=== PATIENT | female | born 1940 | race Two or more races ===

== ENCOUNTER 2025-10-23 16:04 | Inpatient (IN) | payer BC, OTHER ==
[~2025-10-23] VITALS: Ht 152.4 cm; Wt 52.9 kg
[~2025-10-23 16:04] MED LIST: DONE1TAB88 PO; EZET-10 PO; VENL150C58 PO
[2025-10-23 16:29] VITALS: PULSE 74; RESP 16; O2SAT 95
--- NOTE | 2025-10-23 17:02 | ED.PDOC ---
Dean. trauma (HPI) HPI Comments This is an 85 year-old female who presents to the ED via EMS S/P unwitnessed fall today at [facility]. Per EMS, patient was found on the floor, but responsive to staff. Patient presents to the ED with multiple fall wounds, and erythema to the forehead. Patient has no further complaints at this time and otherwise denies dizziness, weakness, fatigue, headache, fever, or chills. Chief Complaint: Fall Injury Time Seen by MD: 16:14 Reviewed notes: Nurses Notes, Medications, Allergies Allergies: Coded Allergies: No Known Drug Allergy (Verified Allergy, Unknown, 10/23/25) Information Source: Patient Mode of Arrival: Ambulatory Severity: Moderate Timing: Minutes Duration: Since onset Prehospital treatment: None Location: Face, Head Mechanism: Fall Past Medical History PAST MEDICAL HISTORY: Unknown Surgical History: Unknown BOTTOM CAGER History: No Pertinent BOTTOM CAGER History Family History Family History: Unknown Social History Smoker: Non-Smoker Alcohol: Denies ETOH Use Drugs: Denies Drug Use Lives In: Assisted Care Constitutional: denies: chills, diaphoresis, fatigue, fever, malaise, sweats, weakness, others EENTM: denies: blurred vision, double vision, ear bleeding, ear discharge, ear drainage, ear pain, ear ringing, eye pain, eye redness, hearing loss, mouth pain, mouth swelling, nasal discharge, nose bleeding, nose congestion, nose pain, photophobia, tearing, throat pain, throat swelling, voice changes, others Respiratory: denies: cough, hemoptysis, orthopnea, SOB at rest, shortness of breath, SOB with excertion, stridor, wheezing, others Cardiovascular: denies: chest pain, dizzy spells, diaphoresis, Dyspnea on exertion, edema, irregular heart beat, left arm pain, lightheadedness, palpitations, PND, syncope, others Gastrointestinal: denies: abdomen distended, abdominal pain, blood streaked bowels, constipated, diarrhea, dysphagia, difficulty swallowing, hematemesis, melena, nausea, poor appetite, poor fluid intake, rectal bleeding, rectal pain, vomiting, others Genitourinary: denies: abnormal vagina bleeding, burning, dyspareunia, dysuria, flank pain, frequency, hematuria, incontinence, pain, , vagina discharge, urgency, others Neurological: denies: dizziness, fainting, headache, left sided numbness, left sided weakness, numbness, paresthesia, pre-existing deficit, right sided numbness, right sided weakness, seizure, speech problems, tingling, tremors, weakness, others Musculoskeletal: denies: back pain, gout, joint pain, joint swelling, muscle pain, muscle stiffness, neck pain, others Integumetry: reports: bruises, laceration; denies: change in color, change in hair/nails, dryness, lesions, lumps, rash, wounds, others Allergic/Immunocompromised: denies: Difficulty Healing, Frequent Infections, Hives, Itching, others Hematologic/Lymphatic: denies: anemia, blood clots, easy bleeding, easy bruising, swollen glands, others Endocrine: denies: excessive hunger, excessive sweating, excessive thirst, excessive urination, flushing, intolerance to cold, intolerance to heat, unexplained weight gain, unexplained weight loss, others Psychiatric: denies: anxiety, bipolar disorder, depression, hopeless, panic disorder, schizophrenia, sleepless, suicidal, others All Other Systems: Reviewed and Negative Physical Exam General Appearance: Mild Distress HEENT: Pharynx Normal Neck: Normal Inspection Respiratory: No Respiratory Distress Cardiovascular: No Edema Breast Exam: Deferred Gastrointestinal: Non Tender Genitalia: Deferred Pelvic: Deferred Rectal: Deferred Extremities: No pedal edema Neurologic: Disoriented Cerebellar Function: NOT DONE Reflexes: NOT DONE Skin: Other (Ecchymosis around the eyes forehead.) Lymphatic: NOT DONE Was a procedure done? Was a procedure done?: No Differential Diagnosis Multiple Trauma: Closed Head Injury, Fractures, Hematoma X-Ray, Labs, Meds, VS Vital Signs Date Time Temp Pulse Resp B/P (MAP) Pulse Ox O2 Delivery O2 Flow Rate FiO2 10/23/25 18:30 64 20 108/34 (58) 94 10/23/25 16:29 98.2 74 16 100/42 (61) 95 98.2 10/23/25 16:29 74 16 95 Room Air* 0 21 10/23/25 16:22 97.8 90 16 112/38 96 97.8 Lab Test 10/23/25 18:04 10/23/25 17:20 10/23/25 17:06 Range/Units Troponin I High Sensitivity Pending 4454 *H </=34 ng/L Urine Color Yellow Yellow Urine Clarity Turbid H Clear Urine pH 5.5 5.0-9.0 Urine Specific [place] 1.032 1.001-1.035 Urine Protein 1+ H Negative Urine Ketones 1+ H Negative Urine Blood Negative Negative /uL Urine Nitrite 2+ H Negative Urine Bilirubin Negative Negative Urine Urobilinogen Normal Negative mg/dL Urine Leukocyte Esterase 3+ Negative /uL Urine RBC 1 0 - 4 /hpf Urine Microscopic WBC 134 H 0-5 /HPF Urine Squamous Epithelial Cells Few <5 /hpf Urine Bacteria Few H None Seen /hpf Urine Mucus Few None Seen Urine Glucose Normal Normal mg/dL White Blood Count 10.0 4.4-10.8 10^3/uL Red Blood Count 4.64 4.0-5.20 10^6/uL Hemoglobin 15.0 12.2-16.2 g/dL Hematocrit 44.2 36.0-46.0 % Mean Corpuscular Volume 95.1 80.0-100.0 fL Mean Corpuscular Hemoglobin 32.2 H 28.0-32.0 pg Mean Corpuscular Hemoglobin Concent 33.9 32.0-36.0 g/dL Red Cell Distribution Width 14.6 H 11.8-14.3 % Platelet Count 286 140-450 10^3/uL Mean Platelet Volume 9.4 6.9-10.8 fL Neutrophils (%) (Auto) 82.4 H 37.0-80.0 % Lymphocytes (%) (Auto) 8.9 L 10.0-50.0 % Monocytes (%) (Auto) 7.5 0.0-12.0 % Eosinophils (%) (Auto) 0.8 0.0-7.0 % Basophils (%) (Auto) 0.4 0.0-2.0 % Neutrophils # (Auto) 8.2 1.6-8.6 10 ^3/uL Lymphocytes # (Auto) 0.9 0.4-5.4 10 ^3/uL Monocytes # (Auto) 0.8 0-1.3 10 ^3/uL Eosinophils # (Auto) 0.1 0-0.8 10 ^3/uL Basophils # (Auto) 0 0-0.2 10 ^3/uL Nucleated Red Blood Cells 0.1 % Sodium Level 142 136-145 mmol/L Potassium Level 4.5 3.5-5.1 mmol/L Chloride Level 106 98-107 mmol/L Carbon Dioxide Level 21 20-31 mmol/L Anion Gap 15 5-15 Blood Urea Nitrogen 20 9-23 mg/dL Creatinine 0.98 0.550-1.02 mg/dL Glomerular Filtration Rate Calc 57 >90 mL/min BUN/Creatinine Ratio 20.4 H 10.0-20.0 Serum Glucose 109 H 74-106 mg/dL Calcium Level 9.4 8.7-10.4 mg/dL B-Type Natriuretic Peptide 75.59 0-100 pg/mL Time of 1ST Reevaluation: 17:45 Reevaluation 1ST: Unchanged Patient Education/Counseling: Diagnosis, Treatment Family Education/Counseling: No Family Present Departure 1 Departure Time of Disposition: 18:37 (Patient likely septic.Patient with elevated troponin likely secondary to demand.Patient with a syncopal episode in the CT head is benign. We will cover patient with antibiotics started heparin drip and admit patient for further workup and expert consultation) Impression: Primary Impression: Sepsis Additional Impressions: NSTEMI (non-ST elevated myocardial infarction) Syncope and collapse Disposition: ADMITTED INPATIENT Admit to: Tele Condition: Guarded Critical Care Note Critical Care Time?: Yes Critical care comment: Sepsis and NSTEMI Authorized and Performed by: Mo Alvarado MD Total critical care time: Approximately 38 minutes Due to a high probability of clinically significant, life threatening deterioration, the patient required my highest level of preparedness to intervene emergently and I personally spent this critical care time directly and personally managing the patient. This critical care time included obtaining a history; examining the patient; pulse oximetry; ordering and review of studies; arranging urgent treatment with development of a management plan; evaluation of patient's response to treatment; frequent reassessment; and, discussions with other providers. This critical care time was performed to assess and manage the high probability of imminent, life-threatening deterioration that could result in multi-organ failure. It was exclusive of separately billable procedures and treating other patients and teaching time. Please see my other sections and the rest of the note for further information on patient assessment and treatment. Stability Stability form required: No Heart Score Heart Score: Heart Score Response (Comments) Value History N/A 0 EKG N/A 0 Age N/A 0 Risk Factors N/A 0 Troponin N/A 0 Total 0 I personally scribed for MO ALVARADO MD ([email or web address]) on 10/23/25 at 17:02. Electronically submitted by Trish Bowers ([facility]). MO ALVARADO MD Oct 23, 2025 17:02
--- NOTE | 2025-10-23 17:16 | DVH ---
EXAM: XY CHEST PORTABLE HISTORY: syncope and collapse TECHNIQUE: 1 view of the chest COMPARISON: None FINDINGS/IMPRESSION: LUNGS: No pleural effusion, consolidation, or pneumothorax. Slight crowding of bronchovascular markings which may reflect atelectasis in the left lung base. MEDIASTINUM: Unremarkable. BONES: No acute osseous abnormality. Change of the left acromioclavicular joint OTHER: None.
--- NOTE | 2025-10-23 17:17 | DVH ---
EXAM: CT HEAD WITHOUT CONTRAST INDICATION: syncope and collapse TECHNIQUE: CT images of the head were obtained without administration of IV contrast. CT scans at this facility use dose modulation, iterative reconstruction, and/or weight based dosing when appropriate to reduce radiation dose to as low as reasonably achievable. COMPARISON: None FINDINGS: PARENCHYMA: No acute hemorrhage. There is no mass effect, midline shift, or herniation. There is preservation of the chen white differentiation. Mild scattered hypoattenuation along the periventricular, centrum semiovale, and deep white matter tracts, which are nonspecific however statistically most likely represent chronic microvascular ischemic change. VENTRICLES: No hydrocephalus. EXTRA-AXIAL SPACES: No extra-axial fluid collections. OTHER: The bony structures are intact. Visualized portions of the paranasal sinuses and mastoid air cells are clear. IMPRESSION: 1. No CT evidence of an acute intracranial abnormality.
[2025-10-23 17:34] LABS: Hematocrit 44.2 % (36.0-46.0); Hemoglobin 15.0 g/dL (12.2-16.2); Mean Corpuscular Hemoglobin 32.2 pg (28.0-32.0); Mean Corpuscular Volume 95.1 fL (80.0-100.0); Nucleated Red Blood Cells % 0.1 %
[2025-10-23 17:56] LABS: Chloride 106 mmol/L (98-107); Potassium 4.5 mmol/L (3.5-5.1); Sodium 142 mmol/L (136-145)
[2025-10-23 17:57] LABS: Anion Gap 15 (5-15); Carbon Dioxide 21 mmol/L (20-31)
[2025-10-23 17:58] LABS: Calcium 9.4 mg/dL (8.7-10.4)
[2025-10-23 18:03] LABS: BUN/Creatinine Ratio 20.4 (10.0-20.0); Blood Urea Nitrogen 20 mg/dL (9-23); Glucose 109 mg/dL (74-106)
[2025-10-23 18:27] LABS: Urine Protein, UAD 1+ (Negative)
[2025-10-23] MEDS ORDERED: HEPARIN DRIP/D5W 100UNITS/ML 250 ML IV SCH (20:15)
[2025-10-23] MEDS ORDERED: HEPARIN SODIUM (PORCINE) 5000 UNITS/ML 1ML VIAL IV ONE (20:15)
[2025-10-23] MEDS: ENOXAPARIN SOD 100 MG/1 ML SYRINGE SC ONE (20:21)
[2025-10-23] MEDS: CEFEPIME 1GM/50ML 50 ML IV ONE (20:33)
[2025-10-23 20:38] LABS: INR 1.01 (0.9-1.15); Partial Thromboplastin Time 26.5 SEC (24.5-34.5); Prothrombin Time 10.7 sec (9.3-11.8)
[2025-10-23] MEDS ORDERED: ACETAMINOPHEN 325 MG TAB PO PRN (20:45)
[2025-10-23] MEDS ORDERED: DOCUSATE SOD 100 MG CAP PO PRN (20:45)
[2025-10-23] MEDS ORDERED: NITROGLYCERIN 0.4 MG SL TAB SL PRN (20:45)
[2025-10-23] MEDS ORDERED: ONDANSETRON HCL 4 MG/2 ML VIAL IV PRN (20:45)
[2025-10-23] MEDS ORDERED: MORPHINE SULFATE INJ 2 MG/ml SYRG IV PRN (20:45)
[2025-10-23] MEDS: LACTATED RINGER'S 1,350 ML IV ONE (21:45)
[2025-10-23] MEDS: D5W/SOD CHL 0.45% 1,000 ML IV SCH (23:23)
[2025-10-24] VITALS (66 sets, daily range): BP systolic 80–140; BP diastolic 31–79; PULSE 58–104; RESP 11–23; TEMP 98.3; O2SAT 93–99
--- NOTE | 2025-10-24 01:04 | DVHHP2 ---
JOANNE MAC EXECUTIVE ASSISTANT TO PRESIDENT 10/24/25 0104: History of Present Illness Reason for Visit: Unwitnessed fall History of Present Illness Information in the HPI is limited due to the patient's current cognitive status And history of dementia. 85-year-old female with past medical history of hypertension, dementia, CKD 3 [facility] experiencing an unwitnessed fall. Patient was found down on the floor per staff. Staff reported patient was responsive.. Unclear as to how long she was down. During the emergency department evaluation troponin levels 4454 /5132 /4313. CBC unremarkable. BMP unremarkable. UA positive for nitrites and leukocyte esterase. Patient is noted to be mildly hypotensive on arrival, BP 100/42. And treated with IVF 30 mL/kilogram. CXR is unremarkable. CT of the head had no acute intracranial abnormality. At this time the patient is admitted for further evaluation and treatment. 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 Renal/: Chronic renal insuff Smoke: No ALCOHOL: none Drugs: None Lives: Detention Review of Systems Constitutional: No: Fever, Chills, Sweats, Weakness, Malaise, Other Eyes: No: Pain, Vision change, Conjunctivae inflammation, Eyelid inflammation, Other, Redness ENT: No: Ear pain, Ear discharge, Nose pain, Nose discharge, Nose congestion, Mouth pain, Mouth swelling, Throat pain, Throat swelling, Other Respiratory: No: Cough, Dry, Shortness of breath, SOB with excertion, Wheezing, Hemoptysis, Pleuritic Pain, Sputum, Wheezing, Other Cardiovascular: No: Chest Pain, Palpitations, Orthopnea, Paroxysmal Noc. Dyspnea, Edema, Lt Headedness, Other Gastrointestinal: No: Nausea, Vomiting, Abdominal Pain, Diarrhea, Constipation, Melena, Hematochezia, Other Genitourinary: No Dysuria, No Frequency, No Incontinence, No Hematuria, No Retention, No Other Musculoskeletal: other (Falls) Skin: Lesions, Bruising; No: Rash, Jaundice, Other Neurological: No: Weakness, Numbness, Incoordination, Change in speech, Confusion, Seizures, Other Allergies: Coded Allergies: No Known Drug Allergy (Verified Allergy, Unknown, 10/23/25) Medications Current Medications Medications Dose Ordered Sig/Leo Route Start Time Stop Time Status Last Admin Dose Admin Docusate Sodium 100 mg BIDPRN PRN PO 10/23/25 20:45 Acetaminophen 650 mg Q6HP PRN PO 10/23/25 20:45 Dextrose/Sodium Chloride 1,000 ml @ 75 mls/hr [id number] IV 10/23/25 20:45 10/23/25 23:23 75 MLS/HR Ondansetron HCl 4 mg Q4HP PRN IV 10/23/25 20:45 Nitroglycerin 0.4 mg Q5MINP PRN SL 10/23/25 20:45 Morphine Sulfate 2 mg Q30M PRN IV 10/23/25 20:45 Ceftriaxone Sodium 50 ml @ 100 mls/hr DAILY IV 10/24/25 10:00 Donepezil HCl 10 mg QPM PO 10/24/25 18:00 Aspirin 81 mg DAILY PO 10/24/25 10:00 Atorvastatin Calcium 40 mg QPM PO 10/24/25 18:00 Exam Vital Signs Vital Signs Date Time Temp Pulse Resp B/P (MAP) Pulse Ox O2 Delivery O2 Flow Rate FiO2 10/24/25 00:00 68 19 101/25 (50) 95 10/23/25 19:30 Room Air* 0 21 10/23/25 19:30 98.4 98.4 General Appearance: Alert (To self), mild distress, Other (Ill-appearing. ) HEENT: PERRLA, EOMI, Other (Multiple bruises to face. Ecchymosis left orbital area) Respiratory: Clear to auscultation, Normal air movement Cardiovascular: Regular rate, Normal S1, Normal S2 Abdominal: Normal bowel sounds, Soft, No tenderness Extremities: No cyanosis, No edema Neuro: Other (At baseline) Psych/Mental Status: Mood NL Labs/Xrays Labs Test 10/23/25 19:21 10/23/25 17:20 10/23/25 17:06 Range/Units Lactic Acid Level 1.0 0.4-2.0 mmol/L Troponin I High Sensitivity 4313 *H </=34 ng/L Urine Color Yellow Yellow Urine Clarity Turbid H Clear Urine pH 5.5 5.0-9.0 Urine Specific [place] 1.032 1.001-1.035 Urine Protein 1+ H Negative Urine Ketones 1+ H Negative Urine Blood Negative Negative /uL Urine Nitrite 2+ H Negative Urine Bilirubin Negative Negative Urine Urobilinogen Normal Negative mg/dL Urine Leukocyte Esterase 3+ Negative /uL Urine RBC 1 0 - 4 /hpf Urine Microscopic WBC 134 H 0-5 /HPF Urine Squamous Epithelial Cells Few <5 /hpf Urine Bacteria Few H None Seen /hpf Urine Mucus Few None Seen Urine Glucose Normal Normal mg/dL White Blood Count 10.0 4.4-10.8 10^3/uL Red Blood Count 4.64 4.0-5.20 10^6/uL Hemoglobin 15.0 12.2-16.2 g/dL Hematocrit 44.2 36.0-46.0 % Mean Corpuscular Volume 95.1 80.0-100.0 fL Mean Corpuscular Hemoglobin 32.2 H 28.0-32.0 pg Mean Corpuscular Hemoglobin Concent 33.9 32.0-36.0 g/dL Red Cell Distribution Width 14.6 H 11.8-14.3 % Platelet Count 286 140-450 10^3/uL Mean Platelet Volume 9.4 6.9-10.8 fL Neutrophils (%) (Auto) 82.4 H 37.0-80.0 % Lymphocytes (%) (Auto) 8.9 L 10.0-50.0 % Monocytes (%) (Auto) 7.5 0.0-12.0 % Eosinophils (%) (Auto) 0.8 0.0-7.0 % Basophils (%) (Auto) 0.4 0.0-2.0 % Neutrophils # (Auto) 8.2 1.6-8.6 10 ^3/uL Lymphocytes # (Auto) 0.9 0.4-5.4 10 ^3/uL Monocytes # (Auto) 0.8 0-1.3 10 ^3/uL Eosinophils # (Auto) 0.1 0-0.8 10 ^3/uL Basophils # (Auto) 0 0-0.2 10 ^3/uL Nucleated Red Blood Cells 0.1 % Prothrombin Time 10.7 9.3-11.8 sec Prothrombin Time INR 1.01 0.9-1.15 Activated Partial Thromboplast Time 26.5 24.5-34.5 SEC Sodium Level 142 136-145 mmol/L Potassium Level 4.5 3.5-5.1 mmol/L Chloride Level 106 98-107 mmol/L Carbon Dioxide Level 21 20-31 mmol/L Anion Gap 15 5-15 Blood Urea Nitrogen 20 9-23 mg/dL Creatinine 0.98 0.550-1.02 mg/dL Glomerular Filtration Rate Calc 57 >90 mL/min BUN/Creatinine Ratio 20.4 H 10.0-20.0 Serum Glucose 109 H 74-106 mg/dL Calcium Level 9.4 8.7-10.4 mg/dL B-Type Natriuretic Peptide 75.59 0-100 pg/mL SEPSIS Sepsis Screen Date sepsis recognized/suspect: Oct 23, 2025 Time Sepsis recognized/suspect: 1929 Recent Procedure: No On Antibiotic Therapy: Yes Respiratory Rate >20: No Heart Rate >90: No Temp<36 C (96.8 F) or >38.3 C: No SBP <90 or MAP <65 mmHG: No New Acute Mental Status Change: No Is the patient on CPAP, BIPAP,: No Physician Orders Blood Culture (10/23/25 18:36) Notify Md If Map <65 Or Bp<90 (10/23/25 18:36) If Map<65 Start Vasopressor (10/23/25 18:36) Sepsis Reassesment After Fluid (10/23/25 19:36) Urine Bacterial Culture (10/23/25 20:42) Admit (10/23/25 20:42) Code Status (10/23/25 20:42) Vital Signs .PER UNIT PROTOCOL (10/23/25 20:42) Review Orders With Adm.Md (10/23/25 20:42) Encourage Activity As Tolerate (10/23/25 20:42) Npo (Nothing By Mouth) Diet (10/24/25 Breakfast) Oxygen By Face Mask (10/23/25 20:42) Docusate Sodium Capsule (Colace Capsule) (10/23/25 20:45) Acetaminophen Tablet (Tylenol Tablet) (10/23/25 20:45) Notify Md Of Changes From Base (10/23/25 20:42) Advance Directive (10/23/25 20:42) Echo 2d Mode Cardiac Dop (10/23/25 20:42) Basic Metabolic Panel (10/24/25 05:00) Basic Metabolic Panel (10/25/25 05:00) Basic Metabolic Panel (10/26/25 05:00) Basic Metabolic Panel (10/27/25 05:00) Basic Metabolic Panel (10/28/25 05:00) Complete Blood Count (10/24/25 05:00) Complete Blood Count (10/25/25 05:00) Complete Blood Count (10/26/25 05:00) Complete Blood Count (10/27/25 05:00) Complete Blood Count (10/28/25 05:00) D5w/Sod Chl 0.45% (D5w 1/2ns) (10/23/25 20:45) Patient Condition (10/23/25 20:42) Allergies (10/23/25 20:42) Ondansetron Hcl (Zofran) (10/23/25 20:45) Sequential Compression Device (10/23/25 ) Nitroglycerin Sublingual (Ntrostat Subli (10/23/25 20:45) Morphine Sulfate Injection (10/23/25 20:45) Stat Ekg For Chest Pain (10/23/25 20:42) Notify Md Of Changes From Base (10/23/25 20:42) Construction Coordinator For 24 Hours (10/23/25 20:42) Emergency Dysrhythmia Protocol (10/23/25 20:42) Rhythm Strips Once Every Shift (10/23/25 20:42) Oxygen By Nasal Cannula (10/23/25 20:42) * Cardiology Consult (10/23/25 20:42) Ceftriaxone 1gm/50ml (Rocephin) (10/24/25 10:00) Donepezil Tablet (Aricept Tablet) (10/24/25 18:00) Aspirin Chewable Tablet (10/24/25 10:00) Atorvastatin (Lipitor) (10/24/25 18:00) Troponin-I Hs (10/24/25 04:00) Troponin-I Hs (10/24/25 12:00) Troponin-I Hs (10/24/25 20:00) Vital Signs Date Time Temp Pulse Resp B/P (MAP) Pulse Ox O2 Delivery O2 Flow Rate FiO2 10/24/25 00:00 68 19 101/25 (50) 95 10/24/25 00:00 69 10/23/25 23:00 84 14 95/35 (55) 95 10/23/25 22:00 94 15 98/47 (64) 97 10/23/25 20:00 73 10/23/25 19:30 Room Air* 0 21 10/23/25 19:30 98.4 87 15 120/33 (62) 95 98.4 10/23/25 18:30 64 20 108/34 (58) 94 Laboratory Tests Test 10/23/25 17:06 10/23/25 19:21 White Blood Count 10.0 10^3/uL (4.4-10.8) Lactic Acid Level 1.0 mmol/L (0.4-2.0) Medications Medications Dose Ordered Sig/Leo Route Start Time Stop Time Status Last Admin Dose Admin Cefepime HCl 50 ml @ 12.5 mls/hr ONCE ONCE IV 10/23/25 18:45 10/23/25 22:44 DC 10/23/25 20:33 12.5 MLS/HR Dextrose/Sodium Chloride 1,000 ml @ 75 mls/hr [id number] IV 10/23/25 20:45 10/23/25 23:23 75 MLS/HR Enoxaparin Sodium 50 mg ONCE ONCE SC 10/23/25 20:15 10/23/25 20:16 DC 10/23/25 20:21 50 MG Lactated Ringer's 1,350 ml @ 1,350 mls/hr ONCE ONCE IV 10/23/25 18:45 10/23/25 19:44 DC 10/23/25 21:45 1,350 MLS/HR Assessment/Plan Assessment/Plan NSTEMI Unwitnessed fall with head injury Syncope? Hypotension UTI Dementia Plan Admit, SDU Cardiology consult. Echocardiogram. ASA / statin. Serial troponin. Monitor BP keep MAP >65. Blood cultures / urine cultures pending. IV ABX. IVF. Fall precautions. Monitor orthostatic vital signs. Continue home medications GI ppx Pepcid / DVT ppx on therapeutic Lovenox Plan discussed with: Patient My Orders Orders - JOANNE MAC EXECUTIVE ASSISTANT TO PRESIDENT Procedure Category Date Status Time Urine Bacterial RADHA 10/23/25 In Process Culture 20:42 Admit ADMIT 10/23/25 Transmitted 20:42 Code Status CODE 10/23/25 Transmitted 20:42 Vital Signs ALBER 10/23/25 In Process 20:42 Review Orders With ALBER 10/23/25 In Process Adm. 20:42 Encourage Activity As ALBER 10/23/25 In Process Tolerate 20:42 Npo (Nothing By DIET 10/24/25 Transmitted Mouth) Diet Breakfast Oxygen By Face Mask RT 10/23/25 Transmitted 20:42 Docusate Sodium PHA 10/23/25 In Process Capsule (Colace 20:45 Acetaminophen Tablet PHA 10/23/25 In Process (Tylenol Tablet) 20:45 Notify Of Changes [facility] 10/23/25 In Process From Base 20:42 Advance Directive ALBER 10/23/25 In Process 20:42 Echo 2d Mode Cardiac US 10/23/25 Logged DOP 20:42 Basic Metabolic Panel LAB 10/24/25 Logged 05:00 Basic Metabolic Panel LAB 10/25/25 Verified 05:00 Basic Metabolic Panel LAB 10/26/25 Verified 05:00 Basic Metabolic Panel LAB 10/27/25 Verified 05:00 Basic Metabolic Panel LAB 10/28/25 Verified 05:00 Complete Blood Count LAB 10/24/25 Logged 05:00 Complete Blood Count LAB 10/25/25 Verified 05:00 Complete Blood Count LAB 10/26/25 Verified 05:00 Complete Blood Count LAB 10/27/25 Verified 05:00 Complete Blood Count LAB 10/28/25 Verified 05:00 D5w/Sod Chl 0.45% PHA 10/23/25 In Process (D5w 1/2ns) 20:45 Patient Condition ORDERS 10/23/25 Transmitted 20:42 Allergies ALBER 10/23/25 In Process 20:42 Ondansetron Hcl PHA 10/23/25 In Process (Zofran) 20:45 Sequential ALBER 10/23/25 In Process Compression Device Nitroglycerin PHA 10/23/25 In Process Sublingual (Ntrostat 20:45 Morphine Sulfate PHA 10/23/25 In Process Injection 20:45 Stat Ekg For Chest ALBER 10/23/25 In Process Pain 20:42 Notify Md Of Changes [facility] 10/23/25 In Process From Base 20:42 Construction Coordinator For [facility] 10/23/25 In Process 24 Hours 20:42 Emergency Dysrhythmia ALBER 10/23/25 In Process Protocol 20:42 Rhythm Strips Once ALBER 10/23/25 In Process Every Shift 20:42 Oxygen By Nasal RT 10/23/25 Transmitted Cannula 20:42 * Cardiology Consult CONS 10/23/25 Transmitted 20:42 Ceftriaxone 1gm/50ml PHA 10/24/25 In Process (Rocephin) 10:00 Donepezil Tablet PHA 11/23/25 In Process (Aricept Tablet) 18:00 Aspirin Chewable PHA 10/24/25 In Process Tablet 10:00 Atorvastatin (Lipitor) PHA 10/24/25 In Process 18:00 Troponin-I Hs LAB 10/24/25 Logged 04:00 Troponin-I Hs LAB 10/24/25 Logged 12:00 Troponin-I Hs LAB 10/24/25 Logged 20:00 Date of Service: Oct 24, 2025 Billing Provider: THI GLOVER MD Common Visit Codes: NOT BILLABLE THI GLOVER MD 10/24/25 1622: Review of Systems Allergies: Coded Allergies: No Known Drug Allergy (Verified Allergy, Unknown, 10/23/25) JOANNE MAC NP Oct 24, 2025 01:04 THI GLOVER MD Oct 24, 2025 16:22
[2025-10-24] MEDS: SODIUM CHLORIDE 0.9% 500 ML IV ONE (02:22)
[2025-10-24] MEDS: NOREPINEPHRINE 8 MG/250ML KIT 250 ML IV SCH (03:24)
[2025-10-24] MEDS: D5W/SOD CHL 0.45% 1,000 ML IV SCH (04:30)
[2025-10-24] MEDS: D5W/SOD CHLO 0.9% 1,000 ML IV ONE (05:58)
[2025-10-24 06:46] LABS: Hematocrit 41.0 % (36.0-46.0); Hemoglobin 13.7 g/dL (12.2-16.2); Mean Corpuscular Hemoglobin 32.0 pg (28.0-32.0); Mean Corpuscular Volume 95.4 fL (80.0-100.0); Nucleated Red Blood Cells % 0.0 %
[2025-10-24 08:21] LABS: Potassium 4.1 mmol/L (3.5-5.1); Sodium 143 mmol/L (136-145)
[2025-10-24 08:22] LABS: Anion Gap 13 (5-15); Calcium 9.1 mg/dL (8.7-10.4); Carbon Dioxide 22 mmol/L (20-31)
[2025-10-24 08:27] LABS: Chloride 108 mmol/L (98-107); Glucose 115 mg/dL (74-106)
[2025-10-24 08:28] LABS: BUN/Creatinine Ratio 16.9 (10.0-20.0); Blood Urea Nitrogen 15 mg/dL (9-23)
[2025-10-24] MEDS: ENOXAPARIN SOD 100 MG/1 ML SYRINGE SC SCH (09:00)
--- NOTE | 2025-10-24 11:24 | DVHINCON2 ---
Date Seen: Oct 24, 2025 Referring Physician MD Jr Reason for Consultation NSTEMI History of Present Illness This is an 85-year-old female patient who presents to the emergency room status post mechanical fall. The patient has an underlying history of dementia and is only alert to self at time of assessment. She is unable to state why she came to the emergency room. Per documentation, the patient lives at a [facility] and was found on the floor by staff. The patient has multiple wounds to her face including laceration to her nose and forehead with bruising to bilateral orbital area. Cardiology has been consulted at this time for elevated troponin level. 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 Twelve lead electrocardiogram done at time of assessment reveals normal sinus rhythm with ST segment depression to anteroseptal and lateral leads. Initial troponin level of 4454ng/L with peak level at 5132ng/L and down trend thereafter. The patient denies any cardiac symptoms during assessment including chest pain, shortness of breath, or palpitations. History obtained from bedside RN and patient's medical records. Significant past medical history includes hypertension, chronic kidney disease, and dementia. Past Medical History Past medical history reviewed. No other significant than mentioned above. Past Surgical History Patient denies Family History Family history reviewed. Social History Denies the use of tobacco, alcohol or illicit drugs. Allergies: Coded Allergies: No Known Drug Allergy (Verified Allergy, Unknown, 10/23/25) Home Meds Home medications reviewed. Current Medications Current Medications Medications (Trade) Dose Ordered Sig/Leo Route PRN Reason Start Time Stop Time Status Last Admin Heparin Sodium/ Dextrose 250 ml @ 5.448 mls/ hr Q24H IV 10/23/25 20:15 10/23/25 20:15 DC Docusate Sodium (Colace Capsule) 100 mg BIDPRN PRN PO FOR CONSTIPATION 10/23/25 20:45 Acetaminophen (Tylenol Tablet) 650 mg Q6HP PRN PO PAIN SCALE 1-3 OR TEMP>100.4 10/23/25 20:45 Dextrose/Sodium Chloride 1,000 ml @ 75 mls/hr [id number] IV 10/23/25 20:45 10/24/25 03:00 DC 10/23/25 23:23 Ondansetron HCl (Zofran) 4 mg Q4HP PRN IV NAUSEA / VOMITING 10/23/25 20:45 Nitroglycerin (Ntrostat Sublingual) 0.4 mg Q5MINP PRN SL FOR CHEST PAIN 10/23/25 20:45 Morphine Sulfate 2 mg Q30M PRN IV FOR CHEST PAIN 10/23/25 20:45 Ceftriaxone Sodium 50 ml @ 100 mls/hr DAILY IV 10/24/25 10:00 Donepezil HCl (Aricept Tablet) 10 mg QPM PO 10/24/25 18:00 Aspirin 81 mg DAILY PO 10/24/25 10:00 Atorvastatin Calcium (Lipitor) 40 mg QPM PO 10/24/25 18:00 Enoxaparin Sodium (Lovenox) 50 mg Q12H SC 10/24/25 09:00 Dextrose/Sodium Chloride 1,000 ml @ 100 mls/hr Q10H IV 10/24/25 03:00 10/24/25 05:33 DC 10/24/25 04:30 Norepinephrine Bitartrate 250 ml @ 3.75 mls/hr Q24H IV 10/24/25 03:15 10/24/25 03:24 Review of Systems Constitutional: No symptom reported Ears, Nose, & Throat: No symptom reported Eyes: No symptom reported Neurological: No symptoms reported Pulmonary/Respiratory: No symptoms reported Cardiovascular: No symptom reported Gastrointestinal: No symptom reported Genitourinary: No symptom reported Musculoskeletal: No symptom reported Skin: No symptom reported Psychiatric: No symptom reported Endocrine: No symptom reported Hematologic/Lymphatic: No symptom reported Vital Signs Vital Signs Date Time Temp Pulse Resp B/P (MAP) Pulse Ox O2 Delivery O2 Flow Rate FiO2 10/24/25 08:00 80 10/24/25 07:15 17 127/89 (102) 96 10/23/25 19:30 Room Air* 0 21 10/23/25 19:30 98.4 98.4 Physical Exam General Appearance: Cooperative. Thin/frail Pulmonary/Respiratory: Clear, bilateral breaths sounds. Cardiovascular/Chest: Regular rate and rhythm. No murmurs, no JVD. Peripheral Pulses: 2+ Radial (R). 2+ Radial (L). 2+ Pedal (R). 2+ Pedal (L) Abdominal Exam: Normal bowel sounds. Soft, non-tender. No hepatosplenomegaly. No masses. Ankle Exam: Negative ankle edema Lower extremities: Negative lower extremity edema Neuro/Mental Status: A/OX1, confused Thoughts/Psych: Appropriate mood and affect. Appearance: No acute distress. Skin Exam: Laceration to forehead and nose. Periorbital ecchymosis Labs/Diagnostic Data Labs Test 10/24/25 07:58 10/24/25 06:05 10/23/25 19:21 10/23/25 17:20 Range/Units Sodium Level 143 136-145 mmol/L Potassium Level 4.1 3.5-5.1 mmol/L Chloride Level 108 H 98-107 mmol/L Carbon Dioxide Level 22 20-31 mmol/L Anion Gap 13 5-15 Blood Urea Nitrogen 15 9-23 mg/dL Creatinine 0.89 0.550-1.02 mg/dL Glomerular Filtration Rate Calc 63 >90 mL/min BUN/Creatinine Ratio 16.9 10.0-20.0 Serum Glucose 115 H 74-106 mg/dL Calcium Level 9.1 8.7-10.4 mg/dL Troponin I High Sensitivity 2039 *H </=34 ng/L White Blood Count 7.6 4.4-10.8 10^3/uL Red Blood Count 4.30 4.0-5.20 10^6/uL Hemoglobin 13.7 12.2-16.2 g/dL Hematocrit 41.0 36.0-46.0 % Mean Corpuscular Volume 95.4 80.0-100.0 fL Mean Corpuscular Hemoglobin 32.0 28.0-32.0 pg Mean Corpuscular Hemoglobin Concent 33.5 32.0-36.0 g/dL Red Cell Distribution Width 14.8 H 11.8-14.3 % Platelet Count 260 140-450 10^3/uL Mean Platelet Volume 9.4 6.9-10.8 fL Neutrophils (%) (Auto) 72.7 37.0-80.0 % Lymphocytes (%) (Auto) 14.9 10.0-50.0 % Monocytes (%) (Auto) 9.8 0.0-12.0 % Eosinophils (%) (Auto) 1.7 0.0-7.0 % Basophils (%) (Auto) 0.9 0.0-2.0 % Neutrophils # (Auto) 5.5 1.6-8.6 10 ^3/uL Lymphocytes # (Auto) 1.1 0.4-5.4 10 ^3/uL Monocytes # (Auto) 0.7 0-1.3 10 ^3/uL Eosinophils # (Auto) 0.1 0-0.8 10 ^3/uL Basophils # (Auto) 0.1 0-0.2 10 ^3/uL Nucleated Red Blood Cells 0.0 % Lactic Acid Level 1.0 0.4-2.0 mmol/L Urine Color Yellow Yellow Urine Clarity Turbid H Clear Urine pH 5.5 5.0-9.0 Urine Specific [place] 1.032 1.001-1.035 Urine Protein 1+ H Negative Urine Ketones 1+ H Negative Urine Blood Negative Negative /uL Urine Nitrite 2+ H Negative Urine Bilirubin Negative Negative Urine Urobilinogen Normal Negative mg/dL Urine Leukocyte Esterase 3+ Negative /uL Urine RBC 1 0 - 4 /hpf Urine Microscopic WBC 134 H 0-5 /HPF Urine Squamous Epithelial Cells Few <5 /hpf Urine Bacteria Few H None Seen /hpf Urine Mucus Few None Seen Urine Glucose Normal Normal mg/dL Test 10/23/25 17:06 Range/Units Prothrombin Time 10.7 9.3-11.8 sec Prothrombin Time INR 1.01 0.9-1.15 Activated Partial Thromboplast Time 26.5 24.5-34.5 SEC B-Type Natriuretic Peptide 75.59 0-100 pg/mL Assessment NSTEMI, possibly type 1 Rule out structural heart disease History of hypertension Unwitnessed fall, ?mechanical vs syncope Urinary tract infection Chronic kidney disease Dementia Plan/Recommendation We will continue with the following plan/recommendations (Dr. Arce): Case discussed with . We will proceed with obtaining a transthoracic echocardiogram to evaluate cardiac function. At the time of assessment, the patient is on vasopressor therapy for hemodynamic support. The patient noted to have urinary tract infection in which antibiotics were started by primary care team. Elevated troponins noted with ST segment depression to anteroseptal and lateral leads. NSTEMI type 1 cannot be fully excluded at this time considering patient's age and comorbidities. Given the patient's frailty, and underlying dementia (patient only alert to self), she is not a candidate to consent for any invasive cardiac procedures at this time. Attempted to call family with number listed in chart ([phone]), with no answer. We will try to speak with the patient's next of kin in regards to further management. In the meantime, continue with single antiplatelet therapy and lipid-lowering agent. Continue with the vasopressors for hemodynamic support. Continue with close cardiac surveillance. Further recommendations per clinical course and progression. Thank you for allowing us to care for this patient. Please call with any questions or concerns. Critical care time spent: 44 minutes This medical document was created using an electronic medical record system with voice recognition software and computerized dictation system. Although this document has been carefully reviewed, there might still be some phonetic and typographical errors. Occasional wrong-word or ``sound-alike substitutions may have occurred due to the inherent limitations of voice recognition software. These areas are purely typographical due to imperfections of the software programs and do not reflect any compromise in the patient's medical care. Please read the chart carefully and recognize, using context, where these substitutions have occurred. Plan discussed with: Patient, Other (Bedside RN) NYHA Physical activity limitations: NA Date of Service: Oct 24, 2025 Billing Provider: SHEILA GARCIA Cardiology Common Codes: [id number] INP/OBS CARE (High) Cardiology Consultation Codes: [id number] CONSULT <45MIN SHEILA GARCIA Oct 24, 2025 11:24
[2025-10-24] MEDS: ENOXAPARIN SOD 60 MG/0.6 ML SYRINGE SC ONE ×2 (12:07→22:38)
[2025-10-24 12:31] LABS: Triglycerides 101.0 mg/dL (< 150)
[2025-10-24 12:33] LABS: Cholesterol 192.0 mg/dL (< 200); HDL Cholesterol 41.0 mg/dL (40-59)
[2025-10-24 12:41] LABS: Magnesium 1.5 mg/dL (1.6-2.6)
--- NOTE | 2025-10-24 15:18 | DVHSR ---
APPROVED REPORT EXAM: Two-dimensional and M-mode echocardiogram with Doppler and color Doppler. Blood Pressure: 127/89 mmHg INDICATION NSTEMI RISK FACTORS Height: 5', Weight: 100 DIMENSIONS LVDd 3.9 (3.8-5.7cm) LA (2D) 3.1 (1.9-4.0cm) Aortic Root 2.6 (2.0-3.7cm) LVDs 3.1 (2.5-4.0cm) LA (MM) (1.9-4.0cm) Aortic Cusp Exc 1.5 (1.5-2.0cm) EF (%) 40.0 (55-70%) Rt. Atrium 3.5 (1.9-4.0cm) Asc. Aorta cm IVSd 0.8 (0.7-1.1cm) RV (D) (1.8-2.4cm) PWd 0.8 (0.7-1.1cm) Mitral Valve Mitral Mitral Stenosis E wave 0.90m/s MV Mean GR. mmHg A wave 1.50m/s MV Peak GR. mmHg E/A ratio 0.6 2D MVA cm2 Aortic Valve Aortic Valve Aortic Stenosis V1 0.80m/s AO Mean GR. 3mmHg V2 1.30m/s AO Peak GR. 7mmHg LVOT Diameter 2.0 (1.8-2.4cm) Doppler YASSINE 1.93cm2 AI P 1/2 Time 483.91ms Tricuspid Valve TR Velocity 2.80m/s RVSP 40mmHg Conclusion Technically good study. Sinus rhythm. Normal chamber sizes. Valves are normal. EF of 40% with anterior apical and inferior apical hypokinesis to akinesis. RV function is stable. Moderate aortic insufficiency. Mild TR. No pericardial effusion masses or vegetations.
[2025-10-24] MEDS: PHENYLEPHRINE IV 0 ML IV ONE (15:22)
[2025-10-24] MEDS: DONEPEZIL HYDROCHLORIDE 5 MG TAB PO SCH (18:00)
[2025-10-24] MEDS: ATORVASTATIN 20 MG TAB PO SCH (18:00)
[2025-10-24] MEDS: MAGNESIUM SULFATE 1GM/100ML 100 ML IV SCH (18:29)
[2025-10-24] MEDS: NOREPINEPHRINE 8 MG/250ML KIT 250 ML IV ONE (21:30)
[2025-10-24] MEDS: ENOXAPARIN SOD 60 MG/0.6 ML SYRINGE SC SCH (22:44)
[2025-10-25] VITALS (96 sets, daily range): BP systolic 81–132; BP diastolic 30–90; PULSE 56–104; RESP 10–28; TEMP 97.9–98.6; O2SAT 88–99
[2025-10-25 03:50] LABS: Hematocrit 40.0 % (36.0-46.0); Hemoglobin 13.4 g/dL (12.2-16.2); Mean Corpuscular Hemoglobin 32.2 pg (28.0-32.0); Mean Corpuscular Volume 95.9 fL (80.0-100.0); Nucleated Red Blood Cells % 0.0 %
[2025-10-25 04:02] LABS: Potassium 4.0 mmol/L (3.5-5.1); Sodium 142 mmol/L (136-145)
[2025-10-25 04:03] LABS: Anion Gap 14 (5-15); Carbon Dioxide 21 mmol/L (20-31)
[2025-10-25 04:04] LABS: Calcium 8.9 mg/dL (8.7-10.4)
[2025-10-25 04:06] LABS: Chloride 107 mmol/L (98-107)
[2025-10-25 04:08] LABS: BUN/Creatinine Ratio 13.6 (10.0-20.0); Blood Urea Nitrogen 12 mg/dL (9-23); Glucose 98 mg/dL (74-106)
--- NOTE | 2025-10-25 08:21 | ECG ---
[facility] Test Date: 2025-10-24 Test Time: 09:22:09 Pat Name: DINORA DIGGS Department: ED Room: 0206T Gender: F Undercollar Baster: cali stark : 1940 Requested By: MO ROBERTSON Order Number: [id number] Reading MD: Cl Arce Measurements Intervals [place] Rate: 71 P: -12 MI: 147 QRS: 19 QRSD: 96 T: 171 QT: 455 QTc: 495 Interpretive Statements Sinus rhythm Anteroseptal infarct, age indeterminate Lateral leads are also involved Electronically Signed On 10-27-2025 17:44:06 PST by Cl Arce Please click the below link to view image of tracing.
[2025-10-25] MEDS: ENOXAPARIN SOD 60 MG/0.6 ML SYRINGE SC SCH (11:11)
[2025-10-25] MEDS ORDERED: VALS160T82 PO (13:46)
[2025-10-25] MEDS ORDERED: SIMV80TA17 PO (13:46)
--- NOTE | 2025-10-25 14:31 | DVHPN2 ---
Consult Progress Note Date Seen: Oct 25, 2025 Subjective Review of Systems: CVS:Normal, RESPIRATORY:Normal, NEURO:Normal Objective vital signs Vital Sign Date Time Temp Pulse Resp B/P (MAP) Pulse Ox O2 Delivery O2 Flow Rate FiO2 10/25/25 13:00 85 18 120/31 (60) 97 10/25/25 12:00 98.0 98.0 10/25/25 08:00 Room Air* 0 21 Total Intake and Output 10/24/25 10/24/25 10/25/25 15:00 23:00 07:00 Output Total 350 ml 125 ml Balance -350 ml -125 ml medications Current Medications Medications Dose Ordered Sig/Leo Route Start Time Stop Time Status Last Admin Dose Admin Docusate Sodium 100 mg BIDPRN PRN PO 10/23/25 20:45 Acetaminophen 650 mg Q6HP PRN PO 10/23/25 20:45 Ondansetron HCl 4 mg Q4HP PRN IV 10/23/25 20:45 Nitroglycerin 0.4 mg Q5MINP PRN SL 10/23/25 20:45 Morphine Sulfate 2 mg Q30M PRN IV 10/23/25 20:45 Ceftriaxone Sodium 50 ml @ 100 mls/hr DAILY IV 10/24/25 10:00 10/25/25 10:18 100 MLS/HR Donepezil HCl 10 mg QPM PO 10/24/25 18:00 Aspirin 81 mg DAILY PO 10/24/25 10:00 Atorvastatin Calcium 40 mg QPM PO 10/24/25 18:00 Norepinephrine Bitartrate 250 ml @ 3.75 mls/hr Q24H IV 10/24/25 03:15 10/24/25 03:24 3.75 MLS/HR Enoxaparin Sodium 60 mg Q12H SC 10/25/25 10:45 10/25/25 11:11 60 MG Examination: LUNGS:Normal, CVS:Normal (Sinus rhythm with T-wave inversion on monitor), NEURO:Normal (A&O x 2-3) laboratory and microbiology Laboratory Tests 10/25/25 03:12 Test 10/25/25 03:12 Range/Units Serum Glucose 98 74-106 mg/dL Problem List/Assessment/Plan Problem List/Assessment/Plan NSTEMI, possibly type 1 [place] compensated HFrEF History of hypertension Unwitnessed fall, ?mechanical vs syncope Urinary tract infection Chronic kidney disease Dementia Plan/Recommendation (Dr. Arce) Transthoracic echocardiogram revealed EF of 40% with anterior apical and inferior apical hypokinesis to akinesis. Given wall motion abnormalities, abnormal 12 lead electrocardiograms, and elevated troponin levels, a cardiac catheterization and coronary angiogram was offered to the patient with next of kin/grandson, Kieran Mendoza, agreeing for surgical intervention at first available. All risks and benefits of the procedure were discussed in detail. In the meantime, continue therapeutic Lovenox, single-antiplatelet therapy, lipid-lowering agent and initiate GDMT for HFrEF with optimal BP (hold SGLT2i given UTI). Continue with vasopressor for hemodynamic support. Continue with close cardiac surveillance. Further recommendations per clinical course and progression. Thank you for allowing us to care for this patient. Please call with any questions or concerns. Critical care time: 40 minutes. This medical document was created using an electronic medical record system with voice recognition software and computerized dictation system. Although this document has been carefully reviewed, there might still be some phonetic and typographical errors. Occasional wrong-word or ``sound-alike substitutions may have occurred due to the inherent limitations of voice recognition software. These areas are purely typographical due to imperfections of the software programs and do not reflect any compromise in the patient's medical care. Please read the chart carefully and recognize, using context, where these substitutions have occurred. Plan discussed with: Patient, Other (Grandson) Date of Service: Oct 25, 2025 Billing Provider: MIKE ECKERT Cardiology Common Codes: [id number] CARE 30-74 MIN MIKE ECKERT Oct 25, 2025 14:31
--- NOTE | 2025-10-25 16:20 | DVHPN2 ---
Subjective Patient is currently in [place] [facility] on therapeutic Lovenox because of NSTEMI. Changes from previous H/P or p: No Changes Eyes: No Pain, No Vision change, No Conjunctivae inflammation, No Eyelid inflammation, No Other, No Redness ENT: No Ear pain, No Ear discharge, No Nose pain, No Nose discharge, No Nose congestion, No Mouth pain, No Mouth swelling, No Throat pain, No Throat swelling, No Other Cardiovascular: No Chest Pain, No Palpitations, No Orthopnea, No Paroxysmal Noc. Dyspnea, No Edema, No Lt Headedness, No Other Respiratory: No Cough, No Dry, No Shortness of breath, No SOB with excertion, No Wheezing, No Hemoptysis, No Pleuritic Pain, No Sputum, No Other Gastrointestinal: No Nausea, No Vomiting, No Abdominal Pain, No Diarrhea, No Constipation, No Melena, No Hematochezia, No Other Genitourinary: No Dysuria, No Frequency, No Incontinence, No Hematuria, No Retention, No Other Musculoskeletal: other (Falls) Skin: No Rash; Lesions; No Jaundice; Bruising; No Other Objective Vitals Vital Signs Date Time Temp Pulse Resp B/P (MAP) Pulse Ox O2 Delivery O2 Flow Rate FiO2 10/25/25 14:00 70 10/25/25 13:00 18 120/31 (60) 97 10/25/25 12:00 98.0 98.0 10/25/25 08:00 Room Air* 0 21 Intake/Output Intake and Output 10/25/25 07:00 Output Total 475 ml Balance -475 ml Output Urine Total 475 ml Exam HEENT pupils are reactive Neck is supple CV is S1-S2 regular rate and rhythm Respiratory diminished breath sounds bases GI positive bowel sound Extremity no edema 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 Medications Current Medications Medications Dose Ordered Sig/Leo Route Start Time Stop Time Status Last Admin Dose Admin Docusate Sodium 100 mg BIDPRN PRN PO 10/23/25 20:45 Acetaminophen 650 mg Q6HP PRN PO 10/23/25 20:45 Ondansetron HCl 4 mg Q4HP PRN IV 10/23/25 20:45 Nitroglycerin 0.4 mg Q5MINP PRN SL 10/23/25 20:45 Morphine Sulfate 2 mg Q30M PRN IV 10/23/25 20:45 Ceftriaxone Sodium 50 ml @ 100 mls/hr DAILY IV 10/24/25 10:00 10/25/25 10:18 100 MLS/HR Donepezil HCl 10 mg QPM PO 10/24/25 18:00 Aspirin 81 mg DAILY PO 10/24/25 10:00 Atorvastatin Calcium 40 mg QPM PO 10/24/25 18:00 Norepinephrine Bitartrate 250 ml @ 3.75 mls/hr Q24H IV 10/24/25 03:15 10/24/25 03:24 3.75 MLS/HR Enoxaparin Sodium 60 mg Q12H SC 10/25/25 10:45 10/25/25 11:11 60 MG Laboratory Results Laboratory Tests 10/25/25 03:12 Chemistry Test 10/25/25 03:12 Calcium Level 8.9 mg/dL (8.7-10.4) Magnesium Level 2.2 mg/dL (1.6-2.6) Urinalysis Test 10/23/25 17:20 Urine Color Yellow (Yellow) Urine Clarity Turbid (Clear) H Urine pH 5.5 (5.0-9.0) Urine Specific [place] 1.032 (1.001-1.035) Urine Protein 1+ (Negative) H Urine Ketones 1+ (Negative) H Urine Blood Negative /uL (Negative) Urine Nitrite 2+ (Negative) H Urine Bilirubin Negative (Negative) Urine Urobilinogen Normal mg/dL (Negative) Urine Leukocyte Esterase 3+ /uL (Negative) Urine RBC 1 /hpf (0 - 4) Urine Microscopic WBC 134 /HPF (0-5) H Urine Squamous Epithelial Cells Few /hpf (<5) Urine Bacteria Few /hpf (None Seen) H Urine Mucus Few (None Seen) Urine Glucose Normal mg/dL (Normal) Microbiology Microbiology Date/Time Source Procedure Growth Status 10/23/25 19:21 Blood Blood Culture - Preliminary NO GROWTH AFTER 24 HOURS OF INCUBATION. Resulted 10/23/25 17:20 Voided Urine Urine Culture - Final Escherichia coli Complete Assessment/Plan Assessment/Plan 85-year-old female with a known history of hypertension, dyslipidemia, Alzheimer dementia initially presented to the hospital from a residential facility with a recurrent falls found to have 1. Acute myocardial infarction with a NSTEMI type 1 2. Hypertension 3. Unwitnessed fall rule out syncope 4. Urinary tract infection 5. Congestive heart failure with systolic dysfunction currently compensated 6. EMMA with a underlying CKD 7. Alzheimer dementia -continue therapeutic Lovenox aspirin and statin, left heart catheterization as per Cardiology Plan discussed with: Patient, Other Problem List: (1) Syncope and collapse (2) NSTEMI (non-ST elevated myocardial infarction) Date of Service: Oct 25, 2025 Billing Provider: THI GLOVER MD Common Visit Codes: NOT BILLABLE THI GLOVER MD Oct 25, 2025 16:20
[2025-10-26] VITALS (85 sets, daily range): BP systolic 100–144; BP diastolic 41–90; PULSE 50–121; RESP 10–29; TEMP 97.4–99.1; O2SAT 89–99
[2025-10-26 03:36] LABS: Hematocrit 38.3 % (36.0-46.0); Hemoglobin 12.8 g/dL (12.2-16.2); Mean Corpuscular Hemoglobin 32.0 pg (28.0-32.0); Mean Corpuscular Volume 95.4 fL (80.0-100.0); Nucleated Red Blood Cells % 0.1 %
[2025-10-26 03:58] LABS: Alanine Aminotransferase 15 U/L (7-40); Albumin 3.5 g/dL (3.2-4.8); Alkaline Phosphatase 96 U/L (46-116); Anion Gap 16 (5-15); BUN/Creatinine Ratio 14.8 (10.0-20.0); Bilirubin, Total 0.6 mg/dL (0.2-1.0); Blood Urea Nitrogen 13 mg/dL (9-23); Calcium 8.9 mg/dL (8.7-10.4); Glucose 84 mg/dL (74-106); Magnesium 1.9 mg/dL (1.6-2.6); Potassium 4.0 mmol/L (3.5-5.1); Sodium 143 mmol/L (136-145); Total Protein 6.3 g/dL (5.7-8.2)
[2025-10-26 03:59] LABS: Carbon Dioxide 20 mmol/L (20-31); Chloride 107 mmol/L (98-107)
--- NOTE | 2025-10-26 10:02 | CONS ---
Pharmacy Clinical Information: From Heart Failure Fallout Report on CQM Application, RejiLilli is an 85-year-old female with PMH of dementia, HTN, CKD 3. Recently diagnosed with HFrEF The patient is currently NPO and has low blood pressure. Please consider adding a beta melany, ACEI/ARB/ARNI, MRA, one at a time when her blood pressure is clinically appropriate and monitor blood pressure closely NIMO NUGENT PSYCHIATRICY RESIDENT Oct 26, 2025 10:02
--- NOTE | 2025-10-26 11:13 | DVHPN2 ---
Consult Progress Note Date Seen: Oct 26, 2025 Subjective Other Systems: No overnight cardiac events reported Objective vital signs Vital Sign Date Time Temp Pulse Resp B/P (MAP) Pulse Ox O2 Delivery O2 Flow Rate FiO2 10/26/25 10:45 79 22 137/57 (83) 97 10/26/25 08:00 98.0 98.0 10/25/25 20:00 Room Air* 0 21 Total Intake and Output 10/25/25 10/25/25 10/26/25 15:00 23:00 07:00 Intake Total 20 ml 0 ml Output Total 130 ml 175 ml Balance -110 ml -175 ml medications Current Medications Medications Dose Ordered Sig/Leo Route Start Time Stop Time Status Last Admin Dose Admin Docusate Sodium 100 mg BIDPRN PRN PO 10/23/25 20:45 Acetaminophen 650 mg Q6HP PRN PO 10/23/25 20:45 Ondansetron HCl 4 mg Q4HP PRN IV 10/23/25 20:45 Nitroglycerin 0.4 mg Q5MINP PRN SL 10/23/25 20:45 Morphine Sulfate 2 mg Q30M PRN IV 10/23/25 20:45 Ceftriaxone Sodium 50 ml @ 100 mls/hr DAILY IV 10/24/25 10:00 10/25/25 10:18 100 MLS/HR Donepezil HCl 10 mg QPM PO 10/24/25 18:00 10/25/25 18:35 10 MG Aspirin 81 mg DAILY PO 10/24/25 10:00 Atorvastatin Calcium 40 mg QPM PO 10/24/25 18:00 10/25/25 18:35 40 MG Norepinephrine Bitartrate 250 ml @ 3.75 mls/hr Q24H IV 10/24/25 03:15 10/24/25 03:24 3.75 MLS/HR Enoxaparin Sodium 60 mg Q12H SC 10/25/25 10:45 10/25/25 22:30 60 MG Examination: LUNGS:Normal, CVS:Normal (Off vasopressors. SR with T-wave inversion on monitor), SKIN:Abnormal (Bilateral orbital hematomas. [place] to left sided neck area), NEURO:Normal (A&O 2-3) laboratory and microbiology Laboratory Tests 10/26/25 02:53 Test 10/26/25 02:53 Range/Units Serum Glucose 84 74-106 mg/dL Problem List/Assessment/Plan Problem List/Assessment/Plan NSTEMI, possibly type 1 [place] compensated HFrEF History of hypertension Unwitnessed fall, ?mechanical vs syncope Urinary tract infection Chronic kidney disease Dementia Plan/Recommendation (Dr. Arce) Transthoracic echocardiogram revealed EF of 40% with anterior apical and inferior apical hypokinesis to akinesis. Given wall motion abnormalities, abnormal 12 lead electrocardiograms, and elevated troponin levels, a cardiac catheterization and coronary angiogram was offered to the patient with next of kin/grandson, Kieran Mendoza, agreeing for surgical intervention at first available. In the meantime, continue therapeutic Lovenox (hold day of procedure), single-antiplatelet therapy, lipid-lowering agent and initiate GDMT for HFrEF with optimal BP (hold SGLT2i given UTI). Continue with vasopressor for hemodynamic support as necessary. Continue with close cardiac surveillance. Further recommendations per clinical course and progression. Thank you for allowing us to care for this patient. Please call with any questions or concerns. Critical care time: 30 minutes. This medical document was created using an electronic medical record system with voice recognition software and computerized dictation system. Although this document has been carefully reviewed, there might still be some phonetic and typographical errors. Occasional wrong-word or ``sound-alike substitutions may have occurred due to the inherent limitations of voice recognition software. These areas are purely typographical due to imperfections of the software programs and do not reflect any compromise in the patient's medical care. Please read the chart carefully and recognize, using context, where these substitutions have occurred. Plan discussed with: Patient, Other (grandson) Dietary Evaluation Review Comments: Nutrition Recommendation: 1) Advance diet as medically feasible 2) Monitor NPO status, lab values, weight trend, and I/O Expected Outcomes/Goals: Intake to meet >75% estimated needs FU 3-5 days Date of Service: Oct 26, 2025 Billing Provider: MIKE ECKERT Cardiology Common Codes: [id number] CARE 30-74 MIN MIKE ECKERT Oct 26, 2025 11:13
[2025-10-26] MEDS: SODIUM CHLORIDE 0.9% 1,000 ML IV ONE (11:45)
--- NOTE | 2025-10-26 14:28 | DVHPN2 ---
Subjective Patient is currently in [place] [facility] on therapeutic Lovenox because of NSTEMI. Changes from previous H/P or p: No Changes Eyes: No Pain, No Vision change, No Conjunctivae inflammation, No Eyelid inflammation, No Other, No Redness ENT: No Ear pain, No Ear discharge, No Nose pain, No Nose discharge, No Nose congestion, No Mouth pain, No Mouth swelling, No Throat pain, No Throat swelling, No Other Cardiovascular: No Chest Pain, No Palpitations, No Orthopnea, No Paroxysmal Noc. Dyspnea, No Edema, No Lt Headedness, No Other Respiratory: No Cough, No Dry, No Shortness of breath, No SOB with excertion, No Wheezing, No Hemoptysis, No Pleuritic Pain, No Sputum, No Other Gastrointestinal: No Nausea, No Vomiting, No Abdominal Pain, No Diarrhea, No Constipation, No Melena, No Hematochezia, No Other Genitourinary: No Dysuria, No Frequency, No Incontinence, No Hematuria, No Retention, No Other Musculoskeletal: other (Falls) Skin: No Rash; Lesions; No Jaundice; Bruising; No Other Objective Vitals Vital Signs Date Time Temp Pulse Resp B/P (MAP) Pulse Ox O2 Delivery O2 Flow Rate FiO2 10/26/25 10:45 79 22 137/57 (83) 97 10/26/25 08:00 98.0 98.0 10/25/25 20:00 Room Air* 0 21 Intake/Output Intake and Output 10/26/25 07:00 Intake Total 20 ml Output Total 305 ml Balance -285 ml Intake Oral 20 ml Output Urine Total 305 ml # Bowel Movements 1 Exam HEENT pupils are reactive Neck is supple CV is S1-S2 regular rate and rhythm Respiratory diminished breath sounds bases GI positive bowel sound Extremity no edema [employer] no motor deficit Medications Current Medications Medications Dose Ordered Sig/Leo Route Start Time Stop Time Status Last Admin Dose Admin Docusate Sodium 100 mg BIDPRN PRN PO 10/23/25 20:45 Acetaminophen 650 mg Q6HP PRN PO 10/23/25 20:45 Ondansetron HCl 4 mg Q4HP PRN IV 10/23/25 20:45 Nitroglycerin 0.4 mg Q5MINP PRN SL 10/23/25 20:45 Morphine Sulfate 2 mg Q30M PRN IV 10/23/25 20:45 Ceftriaxone Sodium 50 ml @ 100 mls/hr DAILY IV 10/24/25 10:00 10/26/25 11:17 100 MLS/HR Donepezil HCl 10 mg QPM PO 10/24/25 18:00 10/25/25 18:35 10 MG Aspirin 81 mg DAILY PO 10/24/25 10:00 Atorvastatin Calcium 40 mg QPM PO 10/24/25 18:00 10/25/25 18:35 40 MG Norepinephrine Bitartrate 250 ml @ 3.75 mls/hr Q24H IV 10/24/25 03:15 10/24/25 03:24 3.75 MLS/HR Enoxaparin Sodium 60 mg Q12H SC 10/25/25 10:45 10/25/25 22:30 60 MG Laboratory Results Laboratory Tests 10/26/25 02:53 Chemistry Test 10/26/25 02:53 Albumin 3.5 g/dL (3.2-4.8) Calcium Level 8.9 mg/dL (8.7-10.4) Magnesium Level 1.9 mg/dL (1.6-2.6) Total Protein 6.3 g/dL (5.7-8.2) LFT Test 10/26/25 02:53 Alanine Aminotransferase (ALT) 15 U/L (7-40) Alkaline Phosphatase 96 U/L (46-116) Aspartate Amino Transferase (AST) 33 U/L (13-40) Total Bilirubin 0.6 mg/dL (0.2-1.0) Urinalysis Test 10/23/25 17:20 Urine Color Yellow (Yellow) Urine Clarity Turbid (Clear) H Urine pH 5.5 (5.0-9.0) Urine Specific [place] 1.032 (1.001-1.035) Urine Protein 1+ (Negative) H Urine Ketones 1+ (Negative) H Urine Blood Negative /uL (Negative) Urine Nitrite 2+ (Negative) H Urine Bilirubin Negative (Negative) Urine Urobilinogen Normal mg/dL (Negative) Urine Leukocyte Esterase 3+ /uL (Negative) Urine RBC 1 /hpf (0 - 4) Urine Microscopic WBC 134 /HPF (0-5) H Urine Squamous Epithelial Cells Few /hpf (<5) Urine Bacteria Few /hpf (None Seen) H Urine Mucus Few (None Seen) Urine Glucose Normal mg/dL (Normal) Microbiology Microbiology Date/Time Source Procedure Growth Status 10/25/25 15:00 Urine - [place] Urine Culture - Preliminary No growth Resulted 10/23/25 19:21 Blood Blood Culture - Preliminary NO GROWTH AFTER 48 HOURS OF INCUBATION. Resulted Assessment/Plan Assessment/Plan 85-year-old female with a known history of hypertension, dyslipidemia, Alzheimer dementia initially presented to the hospital from a [facility] facility with a recurrent falls found to have 1. Acute myocardial infarction with a NSTEMI type 1 2. Hypertension 3. Unwitnessed fall rule out syncope 4. Urinary tract infection 5. Congestive heart failure with systolic dysfunction currently compensated 6. EMMA with a underlying CKD 7. Alzheimer dementia -continue therapeutic Lovenox aspirin and statin, left heart catheterization as per Cardiology Plan discussed with: Patient My Orders Orders - THI GLOVER MD Procedure Category Date Status Time * Dietary Consult CONS 10/26/25 Transmitted 12:23 Date of Service: Oct 26, 2025 Billing Provider: THI GLOVER MD Common Visit Codes: NOT BILLABLE THI GLOVER MD Oct 26, 2025 14:28
[2025-10-26] MEDS ORDERED: BISACODYL 10 MG RECT SUPP PR PRN (19:45)
[2025-10-27] VITALS (13 sets, daily range): BP systolic 104–127; BP diastolic 43–74; PULSE 59–101; RESP 12–94; TEMP 97.5–98.5; O2SAT 93–98
[2025-10-27 07:23] LABS: Hematocrit 35.8 % (36.0-46.0); Hemoglobin 12.2 g/dL (12.2-16.2); Mean Corpuscular Hemoglobin 32.2 pg (28.0-32.0); Mean Corpuscular Volume 94.5 fL (80.0-100.0); Nucleated Red Blood Cells % 0.0 %
[2025-10-27 07:37] LABS: INR 1.07 (0.9-1.15); Partial Thromboplastin Time 25.1 SEC (24.5-34.5); Prothrombin Time 11.3 sec (9.3-11.8)
[2025-10-27 07:58] LABS: Alanine Aminotransferase 17 U/L (7-40); Albumin 3.3 g/dL (3.2-4.8); Alkaline Phosphatase 90 U/L (46-116); BUN/Creatinine Ratio 17.7 (10.0-20.0); Blood Urea Nitrogen 14 mg/dL (9-23); Carbon Dioxide 23 mmol/L (20-31); Total Protein 5.9 g/dL (5.7-8.2)
[2025-10-27 07:59] LABS: Bilirubin, Total 0.6 mg/dL (0.2-1.0)
[2025-10-27 08:19] LABS: Calcium 8.5 mg/dL (8.7-10.4); Glucose 118 mg/dL (74-106)
[2025-10-27 08:31] LABS: Anion Gap 11 (5-15); Potassium 4.0 mmol/L (3.5-5.1); Sodium 143 mmol/L (136-145)
[2025-10-27 08:39] LABS: Chloride 109 mmol/L (98-107)
[2025-10-27] MEDS: IODIXANOL 320MG/ML 100ML BTL IV ONE ×2 (12:40→12:41)
[2025-10-27] MEDS: LIDOCAINE 2%HCL (LOCAL ANESTH.) INJ 20ML MDV ONE (12:59)
[2025-10-27] MEDS: MIDAZOLAM HCL 2MG/2ML 2ml VIAL (1mg/ml) ONE (12:59)
[2025-10-27] MEDS: VERAPAMIL 2.5MG/ML INJ 2ML VIAL IV ONE (12:59)
[2025-10-27] MEDS: HEPARIN SODIUM (PORCINE) 5000 UNITS/ML 1ML VIAL ONE (12:59)
[2025-10-27] MEDS: SODIUM CHL 0.9% 0 ML ONE (12:59)
[2025-10-27] MEDS: fentaNYL CITRATE 100 MCG/2 ML VL ONE (13:00)
--- NOTE | 2025-10-27 13:41 | DVHOP2 ---
Operative Report - 2 Report Details Date: 10/27/25 Preop Diagnosis: CAD ca Postop Diagnosis: Mild CAD, Cardiomyopathy Surgeon: Sarah Arce MD Anesthesiologist: Conscious sedation Anesthesia: Mac, Local Consent: The patient was informed of the risks and benefits of the procedure. These include but are not limited to complications of anesthesia, postoperative infection, incomplete relief of symptoms, recurrence of symptoms, damage to bl ood vessels, nerves and tendons, deep venous thrombosis, pulmonary embolism and possible need for repeat surgery in the future. Complications: none Findings: Moderate CAD RCA. Cardiomyopathy. Indications for Surgery: Chest pain Name of Procedure Performed left heart caherterization, bilateral cine-coronary angiography and left ventriculography Procedure Details Procedure Details: Prior local anaesthesia and full informed consent obtained the patient was prepped and drapped in the usual fashion followed by placement of multipurpose catheter and a tiger catheter for evaluation of coronaries and ventruculography. The patient underwent FFR evaluation of the RCA. No complications Hemodynamics: Aortic blood pressure was 130/70 end-diastolic pressure was 12. There was no gradient across the valve on pullback. Coronary anatomy RCA is a large vessel it has moderate stenosis in its mid section with plaquing. There was about a 60% stenosis at its mid section. FFR revealed a moderate stenosis as well. Distal posterolateral PDA are free of significant disease. Left main is large and normal. Left anterior descending is large and normal. Two diagonals are free of significant disease. The circumflex is large with two marginals free of significant disease Ventriculography in the GRANGER projection shows anteroapical and inferior apical akinesis with ballooning of the LV apex. Hypercontractility of the septum and proximal inferior wall are noted. Impression: Normal ventricular end-diastolic pressure is decreased left ve ntricular ejection fraction moderate CAD RCA. Recommendations: Given her frailty and has a NC and staying on the table we will treat her medically. Condition Good Disposition Home Date of Service: Oct 27, 2025 Billing Provider: SARAH ARCE Sr., MD Cardiology Common Codes: [id number] INP/OBS CARE (High) Cardiology Procedure Codes: 77422-XHXF HEART CATH W/INTRA INJ SARAH ARCE Sr., MD Oct 27, 2025 13:41
--- NOTE | 2025-10-27 14:53 | DVHPN2 ---
Consult Progress Note Date Seen: Oct 27, 2025 Subjective Other Systems: S/p cardiac catheterization without catheter based intervention Objective vital signs Vital Sign Date Time Temp Pulse Resp B/P (MAP) Pulse Ox O2 Delivery O2 Flow Rate FiO2 10/27/25 08:38 98.3 86 17 124/69 (87) 98 98.3 10/27/25 08:12 Room Air* 0 21 Total Intake and Output 10/26/25 10/26/25 10/27/25 15:00 23:00 07:00 Intake Total 170 ml 416 ml 90 ml Output Total 125 ml 150 ml Balance 170 ml 291 ml -60 ml medications Current Medications Medications Dose Ordered Sig/Leo Route Start Time Stop Time Status Last Admin Dose Admin Docusate Sodium 100 mg BIDPRN PRN PO 10/23/25 20:45 Ondansetron HCl 4 mg Q4HP PRN IV 10/23/25 20:45 Nitroglycerin 0.4 mg Q5MINP PRN SL 10/23/25 20:45 Morphine Sulfate 2 mg Q30M PRN IV 10/23/25 20:45 Ceftriaxone Sodium 50 ml @ 100 mls/hr DAILY IV 10/24/25 10:00 10/27/25 08:37 100 MLS/HR Donepezil HCl 10 mg QPM PO 10/24/25 18:00 10/26/25 18:27 10 MG Aspirin 81 mg DAILY PO 10/24/25 10:00 Atorvastatin Calcium 40 mg QPM PO 10/24/25 18:00 10/26/25 18:27 40 MG Norepinephrine Bitartrate 250 ml @ 3.75 mls/hr Q24H IV 10/24/25 03:15 10/24/25 03:24 3.75 MLS/HR Enoxaparin Sodium 60 mg Q12H SC 10/25/25 10:45 10/26/25 21:31 60 MG Bisacodyl 10 mg DAILYP PRN [place] 10/26/25 19:45 Acetaminophen 650 mg Q6HP PRN PO 10/27/25 05:15 Examination: LUNGS:Normal, CVS:Normal, SKIN:Abnormal (Bilateral orbital hematomas, spencer to left sided neck area), NEURO:Normal laboratory and microbiology Laboratory Tests 10/27/25 06:55 Test 10/27/25 06:55 Range/Units Serum Glucose 118 H 74-106 mg/dL Problem List/Assessment/Plan Problem List/Assessment/Plan NSTEMI with moderate CAD to the RCA [place] compensated HFrEF History of hypertension Unwitnessed fall, ?mechanical vs syncope Urinary tract infection Chronic kidney disease Dementia Plan/Recommendation (Dr. Arce) Transthoracic echocardiogram revealed EF of 40% with anterior apical and inferior apical hypokinesis to akinesis. Status post cardiac catheterization and coronary angiogram found with a 60% lesion at the mid-RCA with FFR revealing moderate stenosis. There was no catheter based intervention with medical management recommended at this time. In the meantime, continue single- antiplatelet therapy, lipid-lowering agent, and initiate GDMT for HFrEF as tolerated (hold SGLT2i given UTI). Follow-up with a primary resolution analyst within 1-2 weeks post discharge. Repeat transthoarcic echocardiogram in three months. There is no further cardiac work-up indicated at this time. Kindly all with any questions or concerns. Thank you for allowing us to care for this patient. This medical document was created using an electronic medical record system with voice recognition software and computerized dictation system. Although this document has been carefully reviewed, there might still be some phonetic and typographical errors. Occasional wrong-word or ``sound-alike substitutions may have occurred due to the inherent limitations of voice recognition software. These areas are purely typographical due to imperfections of the software programs and do not reflect any compromise in the patient's medical care. Please read the chart carefully and recognize, using context, where these substitutions have occurred. Plan discussed with: Other Dietary Evaluation Review Comments: Nutrition Recommendation: 1) Advance diet as medically feasible 2) Monitor NPO status, lab values, weight trend, and I/O Expected Outcomes/Goals: Intake to meet >75% estimated needs FU 3-5 days Date of Service: Oct 27, 2025 Billing Provider: MIKE ECKERT Cardiology Common Codes: [id number] [facility] MIKE ECKERT Oct 27, 2025 14:53
--- NOTE | 2025-10-27 15:34 | DVHPN2 ---
Subjective PATIENT WAS SEEN AND EVALUATED BY ME IN THE CONTENT ARCHITECT PATIENT IS STATUS POST CARDIAC CATHETERIZATION SHOWS MODERATE CORONARY ARTERY DISEASE IN RCA, MEDICAL MANAGEMENT WAS RECOMMENDED. Changes from previous H/P or p: No Changes Eyes: No Pain, No Vision change, No Conjunctivae inflammation, No Eyelid inflammation, No Other, No Redness ENT: No Ear pain, No Ear discharge, No Nose pain, No Nose discharge, No Nose congestion, No Mouth pain, No Mouth swelling, No Throat pain, No Throat swelling, No Other Cardiovascular: No Chest Pain, No Palpitations, No Orthopnea, No Paroxysmal Noc. Dyspnea, No Edema, No Lt Headedness, No Other Respiratory: No Cough, No Dry, No Shortness of breath, No SOB with excertion, No Wheezing, No Hemoptysis, No Pleuritic Pain, No Sputum, No Other Gastrointestinal: No Nausea, No Vomiting, No Abdominal Pain, No Diarrhea, No Constipation, No Melena, No Hematochezia, No Other Genitourinary: No Dysuria, No Frequency, No Incontinence, No Hematuria, No Retention, No Other Musculoskeletal: other (Falls) Skin: No Rash; Lesions; No Jaundice; Bruising; No Other Objective Vitals Vital Signs Date Time Temp Pulse Resp B/P (MAP) Pulse Ox O2 Delivery O2 Flow Rate FiO2 10/27/25 08:38 98.3 86 17 124/69 (87) 98 98.3 10/27/25 08:12 Room Air* 0 21 Intake/Output Intake and Output 10/27/25 07:00 Intake Total 676 ml Output Total 275 ml Balance 401 ml Intake Oral 236 ml IV Total 440 ml Output Urine Total 275 ml Exam HEENT pupils are reactive Neck is supple CV is S1-S2 regular rate and rhythm Respiratory diminished breath sounds bases GI positive bowel sound Extremity no edema [employer] no motor deficit Medications Current Medications Medications Dose Ordered Sig/Leo Route Start Time Stop Time Status Last Admin Dose Admin Docusate Sodium 100 mg BIDPRN PRN PO 10/23/25 20:45 Ondansetron HCl 4 mg Q4HP PRN IV 10/23/25 20:45 Nitroglycerin 0.4 mg Q5MINP PRN SL 10/23/25 20:45 Morphine Sulfate 2 mg Q30M PRN IV 10/23/25 20:45 Ceftriaxone Sodium 50 ml @ 100 mls/hr DAILY IV 10/24/25 10:00 10/27/25 08:37 100 MLS/HR Donepezil HCl 10 mg QPM PO 10/24/25 18:00 10/26/25 18:27 10 MG Aspirin 81 mg DAILY PO 10/24/25 10:00 Atorvastatin Calcium 40 mg QPM PO 10/24/25 18:00 10/26/25 18:27 40 MG Bisacodyl 10 mg DAILYP PRN [place] 10/26/25 19:45 Acetaminophen 650 mg Q6HP PRN PO 10/27/25 05:15 Enoxaparin Sodium 30 mg DAILY SC 10/28/25 10:00 Metoprolol Tartrate 12.5 mg BID PO 10/27/25 22:00 Lisinopril 2.5 mg DAILY PO 10/28/25 10:00 Spironolactone 12.5 mg DAILY PO 10/28/25 10:00 Laboratory Results Laboratory Tests 10/27/25 06:55 Chemistry Test 10/27/25 06:55 Albumin 3.3 g/dL (3.2-4.8) Calcium Level 8.5 mg/dL (8.7-10.4) L Total Protein 5.9 g/dL (5.7-8.2) Coagulation Test 10/27/25 06:55 Prothrombin Time 11.3 sec (9.3-11.8) Prothrombin Time INR 1.07 (0.9-1.15) Activated Partial Thromboplast Time 25.1 SEC (24.5-34.5) LFT Test 10/27/25 06:55 Alanine Aminotransferase (ALT) 17 U/L (7-40) Alkaline Phosphatase 90 U/L (46-116) Aspartate Amino Transferase (AST) 30 U/L (13-40) Total Bilirubin 0.6 mg/dL (0.2-1.0) Urinalysis Test 10/23/25 17:20 Urine Color Yellow (Yellow) Urine Clarity Turbid (Clear) H Urine pH 5.5 (5.0-9.0) Urine Specific [place] 1.032 (1.001-1.035) Urine Protein 1+ (Negative) H Urine Ketones 1+ (Negative) H Urine Blood Negative /uL (Negative) Urine Nitrite 2+ (Negative) H Urine Bilirubin Negative (Negative) Urine Urobilinogen Normal mg/dL (Negative) Urine Leukocyte Esterase 3+ /uL (Negative) Urine RBC 1 /hpf (0 - 4) Urine Microscopic WBC 134 /HPF (0-5) H Urine Squamous Epithelial Cells Few /hpf (<5) Urine Bacteria Few /hpf (None Seen) H Urine Mucus Few (None Seen) Urine Glucose Normal mg/dL (Normal) Microbiology Microbiology Date/Time Source Procedure Growth Status 10/25/25 15:00 Urine - [place] Urine Culture - Final Complete 10/23/25 19:21 Blood Blood Culture - Preliminary NO GROWTH AFTER 72 HOURS OF INCUBATION. Resulted Assessment/Plan Assessment/Plan 85-year-old female with a known history of hypertension, dyslipidemia, Alzheimer dementia [facility] with a recurrent falls found to have 1. Acute myocardial infarction with a NSTEMI type 1 2. Hypertension 3. Unwitnessed fall rule out syncope 4. Urinary tract infection 5. Congestive heart failure with systolic dysfunction currently compensated 6. EMMA with a underlying CKD 7. Alzheimer dementia -continue therapeutic Lovenox aspirin and statin, left heart catheterization SHOWED MODERATE CAD IN RCA -PHYSICAL THERAPY EVALUATION AND TREATMENT, DISCHARGE PLAN Plan discussed with: Patient, Other My Orders Orders - THI GLOVER MD Procedure Category Date Status Time Consultdr. Sin CONS 10/26/25 Transmitted [place](Spine) 16:27 Bisacodyl Suppository PHA 10/26/25 In Process ([place] Supposit 19:45 Date of Service: Oct 27, 2025 Billing Provider: THI GLOVER MD Common Visit Codes: NOT BILLABLE THI GLOVER MD Oct 27, 2025 15:34
[2025-10-27] MEDS: METOPROLOL TARTRATE 25 MG TAB PO SCH (22:00)
[2025-10-28] VITALS (8 sets, daily range): BP systolic 107–131; BP diastolic 51–70; PULSE 68–99; RESP 14–18; TEMP 97–99.3; O2SAT 92–95
[2025-10-28] MEDS: SPIRONOLACTONE 25 MG TAB PO SCH (09:23)
[2025-10-28] MEDS: LISINOPRIL 5 MG TAB PO SCH (09:24)
[2025-10-28] MEDS: ENOXAPARIN SOD 30 MG/0.3 ML SYRINGE SC SCH (09:27)
[2025-10-28 10:20] LABS: Hematocrit 37.0 % (36.0-46.0); Hemoglobin 12.5 g/dL (12.2-16.2); Mean Corpuscular Hemoglobin 32.0 pg (28.0-32.0); Mean Corpuscular Volume 94.7 fL (80.0-100.0); Nucleated Red Blood Cells % 0.0 %
[2025-10-28 10:39] LABS: Alanine Aminotransferase 20 U/L (7-40); Albumin 3.5 g/dL (3.2-4.8); Alkaline Phosphatase 94 U/L (46-116); Anion Gap 11 (5-15); BUN/Creatinine Ratio 15.6 (10.0-20.0); Bilirubin, Total 0.4 mg/dL (0.2-1.0); Blood Urea Nitrogen 14 mg/dL (9-23); Calcium 8.8 mg/dL (8.7-10.4); Carbon Dioxide 21 mmol/L (20-31); Chloride 108 mmol/L (98-107); Glucose 189 mg/dL (74-106); Potassium 4.1 mmol/L (3.5-5.1); Sodium 140 mmol/L (136-145); Total Protein 6.2 g/dL (5.7-8.2)
--- NOTE | 2025-10-28 15:33 | DVHDS2 ---
Discharge Summary Date of Admission Oct 23, 2025 at 20:42 Date of Discharge: Oct 28, 2025 Labs/Diagnostic Data: Laboratory Results Test 10/28/25 10:08 10/27/25 06:55 10/26/25 02:53 10/24/25 13:57 White Blood Count 9.6 10^3/uL (4.4-10.8) Red Blood Count 3.91 10^6/uL (4.0-5.20) Hemoglobin 12.5 g/dL (12.2-16.2) Hematocrit 37.0 % (36.0-46.0) Mean Corpuscular Volume 94.7 fL (80.0-100.0) Mean Corpuscular Hemoglobin 32.0 pg (28.0-32.0) Mean Corpuscular Hemoglobin Concent 33.8 g/dL (32.0-36.0) Red Cell Distribution Width 14.5 % (11.8-14.3) Platelet Count 208 10^3/uL (140-450) Mean Platelet Volume 10.0 fL (6.9-10.8) Neutrophils (%) (Auto) 87.2 % (37.0-80.0) Lymphocytes (%) (Auto) 6.0 % (10.0-50.0) Monocytes (%) (Auto) 6.0 % (0.0-12.0) Eosinophils (%) (Auto) 0.5 % (0.0-7.0) Basophils (%) (Auto) 0.3 % (0.0-2.0) Neutrophils # (Auto) 8.3 10 ^3/uL (1.6-8.6) Lymphocytes # (Auto) 0.6 10 ^3/uL (0.4-5.4) Monocytes # (Auto) 0.6 10 ^3/uL (0-1.3) Eosinophils # (Auto) 0 10 ^3/uL (0-0.8) Basophils # (Auto) 0 10 ^3/uL (0-0.2) Nucleated Red Blood Cells 0.0 % Sodium Level 140 mmol/L (136-145) Potassium Level 4.1 mmol/L (3.5-5.1) Chloride Level 108 mmol/L (98-107) Carbon Dioxide Level 21 mmol/L (20-31) Anion Gap 11 (5-15) Blood Urea Nitrogen 14 mg/dL (9-23) Creatinine 0.90 mg/dL (0.550-1.02) Glomerular Filtration Rate Calc 63 mL/min (>90) BUN/Creatinine Ratio 15.6 (10.0-20.0) Serum Glucose 189 mg/dL (74-106) Calcium Level 8.8 mg/dL (8.7-10.4) Total Bilirubin 0.4 mg/dL (0.2-1.0) Aspartate Amino Transferase (AST) 31 U/L (13-40) Alanine Aminotransferase (ALT) 20 U/L (7-40) Alkaline Phosphatase 94 U/L (46-116) Total Protein 6.2 g/dL (5.7-8.2) Albumin 3.5 g/dL (3.2-4.8) Prothrombin Time 11.3 sec (9.3-11.8) Prothrombin Time INR 1.07 (0.9-1.15) Activated Partial Thromboplast Time 25.1 SEC (24.5-34.5) Magnesium Level 1.9 mg/dL (1.6-2.6) Troponin I High Sensitivity 2511 ng/L (</=34) Test 10/24/25 07:58 10/24/25 06:05 10/23/25 19:21 10/23/25 17:20 Triglycerides Level 101 mg/dL (< 150) Cholesterol Level 192 mg/dL (< 200) LDL Cholesterol 128 mg/dL (< 100) HDL Cholesterol 41 mg/dL (40-59) Thyroid Stimulating Hormone (TSH) 3.52 uIU/mL (0.55-4.78) Hemoglobin A1c 5.7 % A1C (<5.7) Lactic Acid Level 1.0 mmol/L (0.4-2.0) Urine Color Yellow (Yellow) Urine Clarity Turbid (Clear) Urine pH 5.5 (5.0-9.0) Urine Specific [place] 1.032 (1.001-1.035) Urine Protein 1+ (Negative) Urine Ketones 1+ (Negative) Urine Blood Negative /uL (Negative) Urine Nitrite 2+ (Negative) Urine Bilirubin Negative (Negative) Urine Urobilinogen Normal mg/dL (Negative) Urine Leukocyte Esterase 3+ /uL (Negative) Urine RBC 1 /hpf (0 - 4) Urine Microscopic WBC 134 /HPF (0-5) Urine Squamous Epithelial Cells Few /hpf (<5) Urine Bacteria Few /hpf (None Seen) Urine Mucus Few (None Seen) Urine Glucose Normal mg/dL (Normal) Test 10/23/25 17:06 B-Type Natriuretic Peptide 75.59 pg/mL (0-100) Other Laboratory Tests 10/28/25 10:08 Brief Hx & Hospital Course: 85-year-old female with a known history of hypertension, dyslipidemia, Alzheimer dementia initially presented [facility] the hospital from a [facility] facility with a recurrent falls found to have acute myocardial infarction. Patient also has fallen Kenalog. . Patient was found to have congestive heart failure with systolic dysfunction. Patient underwent coronary angiogram which shows RCA 60% stenosis medical management was recommended. Patient's UTI was treated. Patient will be [facility] to [facility] for physical therapy and pain management. Condition at Discharge: Stable Final Diagnosis/Problems List 85-year-old female with a known history of hypertension, dyslipidemia, Alzheimer dementia initially presented to the hospital from a prison facility with a recurrent falls found to have 1. Acute myocardial infarction with a NSTEMI type 1 2. Hypertension 3. Unwitnessed fall rule out syncope 4. Urinary tract infection 5. Congestive heart failure with systolic dysfunction currently compensated 6. EMMA with a underlying CKD 7. Alzheimer dementia Discharge Disposition: [facility] Discharge Will this Physician continue t: No Discharge Instruct/Medications Diet: Cardiac 2g Na,low cholest Activity: No Restrictions, As Tolerated Follow Up/Referral: Please follow up with the PCP in one week Follow up with the Cardiology in one week Follow up with the spine surgery in 1-2 weeks Medications: Medication as reconciled. Continued Medications: Donepezil Hydrochloride (Donepezil Hcl) 10 Mg Tab 1 TAB PO DAILY for 31 Days, #31 Ezetimibe (Ezetimibe) 10 Mg Tab 1 TAB PO DAILY for 31 Days, #31 Venlafaxine Hcl (Venlafaxine Hcl Er) 150 Mg Cap 1 CAP PO DAILY for 31 Days, #31 Discontinued Medications: Simvastatin (Simvastatin) 80 Mg Tab 1 TAB PO DAILY for 90 Days, #90 Valsartan-Hydrochlorothiazide (Valsartan/Hydrochlorothia) 1 Tab Tab 1 TAB PO BID for 90 Days, #180 Scheduled Donepezil Hydrochloride (Donepezil Hcl), 1 TAB PO DAILY, (Reported) Ezetimibe (Ezetimibe), 1 TAB PO DAILY, (Reported) Simvastatin (Simvastatin), 1 TAB PO DAILY, (Reported) Valsartan-Hydrochlorothiazide (Valsartan/Hydrochlorothia), 1 TAB PO BID, (Reported) Venlafaxine Hcl (Venlafaxine Hcl Er), 1 CAP PO DAILY, (Reported) Discharge Statement: "Patient was advised to return to the ER or call 911 if any headaches, dizziness, shortness of breath, chest pain, abdominal pain, bleeding, fevers, or worsening of medical condition. Patient was counseled about treatment plan, medications, possible side effects, patientverbalized understanding. All questions were answered to the best of my ability. This discharge took greater then 30 minutes in planning, reviewing documentation, counseling the patient, and discussing with other team members." ASSESSMENT ASSESSMENT Assessment 85-year-old female with a known history of hypertension, dyslipidemia, Alzheimer dementia initially presented to the hospital from a prison facility with a recurrent falls found to have 1. Acute myocardial infarction with a NSTEMI type 1 2. Hypertension 3. Unwitnessed fall rule out syncope 4. Urinary tract infection 5. Congestive heart failure with systolic dysfunction currently compensated 6. EMMA with a underlying CKD 7. Alzheimer dementia Date of Service: Oct 28, 2025 Billing Provider: THI GLOVER MD Common Visit Codes: NOT BILLABLE THI GLOVER MD Oct 28, 2025 15:33
[2025-10-29] VITALS (8 sets, daily range): BP systolic 91–130; BP diastolic 48–71; PULSE 51–116; RESP 16–18; TEMP 98–98.8; O2SAT 93–97
[2025-10-30] VITALS (8 sets, daily range): BP systolic 82–133; BP diastolic 42–82; PULSE 55–114; RESP 16–22; TEMP 97.7–99.2; O2SAT 93–97
[2025-10-30] MEDS: ACETAMINOPHEN 325 MG TAB PO PRN (19:45)
[2025-10-30] MEDS: SODIUM CHLORIDE 0.9% 1,000 ML IV ONE (20:52)
[2025-10-31] VITALS (9 sets, daily range): BP systolic 85–112; BP diastolic 41–88; PULSE 61–99; RESP 15–20; TEMP 97.3–98.4; O2SAT 95–99
[2025-10-31] MEDS: diphenhydrAMINE HCL 50 MG/1 ML VL IV ONE (01:48)
--- NOTE | 2025-10-31 09:28 | MEDREC ---
[facility] Intervention Section I [facility] Intervention: Deescalate AB based on CS (8 DAYS ON CEFTRIAXONE - PLEASE CONDSIDER D/C CEFTRIAXONE - COURSE OF THERAPY COMPLETE (UTI RECOMMENDED DURATION OF THERAPY 5 TO 7 DAYS) - URINE CULTURE 10/25 NO GROWTH - WHITE BLOOD CELLS WITHIN NORMAL RANGE - AFEBRILE PATIENT) ADARSH DIAZ PHARMACIST Oct 31, 2025 09:28
[2025-10-31] MEDS ORDERED: HYDROcodone-ACET 5/325MG TAB PO PRN ×2 (10:15→10:30)
[2025-10-31 12:44] LABS: Hematocrit 32.3 % (36.0-46.0); Hemoglobin 11.0 g/dL (12.2-16.2); Mean Corpuscular Hemoglobin 32.3 pg (28.0-32.0); Mean Corpuscular Volume 95.3 fL (80.0-100.0); Nucleated Red Blood Cells % 0.1 %
[2025-10-31 12:58] LABS: Alanine Aminotransferase 24 U/L (7-40); Alkaline Phosphatase 80 U/L (46-116); Anion Gap 10 (5-15); BUN/Creatinine Ratio 16.3 (10.0-20.0); Blood Urea Nitrogen 14 mg/dL (9-23); Carbon Dioxide 21 mmol/L (20-31); Sodium 142 mmol/L (136-145)
[2025-10-31 13:03] LABS: Albumin 3.0 g/dL (3.2-4.8); Bilirubin, Total 0.3 mg/dL (0.2-1.0); Calcium 7.8 mg/dL (8.7-10.4); Chloride 111 mmol/L (98-107); Glucose 159 mg/dL (74-106); Potassium 3.5 mmol/L (3.5-5.1); Total Protein 5.2 g/dL (5.7-8.2)
[2025-10-31] MEDS: MIDODRINE HCL 10 MG TAB PO SCH (14:21)
--- NOTE | 2025-10-31 15:52 | DVH ---
CHEST RADIOGRAPH REASON FOR EXAM: Shortness of breath COMPARISON: XY CHEST PORTABLE on DOS: 10/23/25 TECHNIQUE: One view of the chest is provided FINDINGS: The cardiomediastinal silhouette is within normal limits for technique. There is no focal airspace disease. There is no significant pleural effusion. No acute bony abnormality is identified. IMPRESSION: No radiographic evidence of acute cardiopulmonary process.
[2025-11-01 00:44] VITALS: BP 112/56; PULSE 97; RESP 18; TEMP 98; O2SAT 98
[2025-11-01 05:00] VITALS: BP 102/54; PULSE 51; RESP 18; TEMP 98; O2SAT 95
[2025-11-01 07:49] VITALS: PULSE 67; RESP 15; O2SAT 95
[2025-11-01 09:00] VITALS: BP 135/76; PULSE 63; RESP 17; TEMP 98; O2SAT 97
[2025-11-01 13:00] VITALS: BP 126/54; PULSE 67; RESP 16; TEMP 98.1; O2SAT 94
== END 2025-11-01 16:00 | DRG 280 ==
LOC: ER 16:04 → OVERFLOW 20:42 → ICU CENTRL 10-24 20:25 → TELE-CENTR 10-26 21:50
PROVIDERS: ADMIT Hospitalist; ATTEND Hospitalist
PROC: 4A023N7 Measurement of Cardiac Sampling and Pressure, Left Heart, Percutaneous Approach (ICD-10-PCS; principal; 2025-10-27)
PROC: B211YZZ Fluoroscopy of Multiple Coronary Arteries using Other Contrast (ICD-10-PCS; 2025-10-27)
PROC: B215YZZ Fluoroscopy of Left Heart using Other Contrast (ICD-10-PCS; 2025-10-27)
PROC: 4A033BC Measurement of Arterial Pressure, Coronary, Percutaneous Approach (ICD-10-PCS; 2025-10-27)
DX: I21.4 Non-ST elevation (NSTEMI) myocardial infarction (principal); R57.0 Cardiogenic shock; S09.90XA Unspecified injury of head, initial encounter; N17.9 Acute kidney failure, unspecified; N30.00 Acute cystitis without hematuria; I13.0 Hypertensive heart and chronic kidney disease with heart failure and stage 1 through stage 4 chronic kidney disease, or unspecified chronic kidney disease; F02.80 Dementia in other diseases classified elsewhere, unspecified severity, without behavioral disturbance, psychotic disturbance, mood disturbance, and anxiety; I50.20 Unspecified systolic (congestive) heart failure; I42.9 Cardiomyopathy, unspecified; I25.10 Atherosclerotic heart disease of native coronary artery without angina pectoris; I95.9 Hypotension, unspecified; G30.9 Alzheimer's disease, unspecified; E78.5 Hyperlipidemia, unspecified; R29.6 Repeated falls; S01.21XA Laceration without foreign body of nose, initial encounter; W18.39XA Other fall on same level, initial encounter; Y93.89 Activity, other specified; Y92.89 Other specified places as the place of occurrence of the external cause; Y99.8 Other external cause status; Z79.899 Other long term (current) drug therapy
CPT/HCPCS: 36415; 70450; 71045; 80048; 80053; 80061; 81001; 83036; 83605; 83735; 83880; 84443; 84484; 85025; 85610; 85730; 86850; 86900; 86901; 87040; 87086; 87088; 87186; 92610; 93005; 93306; 93458; 93571; 96361; 96365; 97110; 97116; 97162; 97530; 99152; 99291; G0378; J2250; Q9967